=== PATIENT | female | born 1940 | race Asian ===

== ENCOUNTER → 2018-06-02 | Outpatient (CLI) | payer OTHER, MEDICARE | LOC: FIMAGING 13:44 | PROVIDERS: ATTEND Family Medicine | DX: Z12.31 Encounter for screening mammogram for malignant neoplasm of breast (principal); Z13.820 Encounter for screening for osteoporosis; M81.0 Age-related osteoporosis without current pathological fracture; E03.9 Hypothyroidism, unspecified; E28.39 Other primary ovarian failure; Z79.52 Long term (current) use of systemic steroids; Z78.0 Asymptomatic menopausal state ==